=== PATIENT | male | born 1990 | race Caucasian/White ===

== ENCOUNTER 2018-06-13 09:24 | Outpatient (CLI) | payer BC, SELFPAY ==
--- NOTE | 2018-06-13 09:31 | DI.REPORT_ITS ---
SYMPTOM/DIAGNOSIS: LOW BACK PAIN, M54.9 LUMBAR SPINE: AP lateral and bilateral oblique views. There are no priors for comparison. There are five lumbar type vertebral bodies. There is straightening of the normal lumbar lordosis. No spondylolysis is present. There is very mild retrolisthesis of L5 on S1. There is a vacuum disc and disc space narrowing at L5-S1. The bones are normally mineralized. No acute fracture or subluxation is seen. The soft tissues are unremarkable. Incidental note is made of a bifid spinous process at S-1. IMPRESSION: Mild degenerative changes seen at L5-S1. If there is continued clinical concern and further imaging is warranted, an MRI may be considered.
== END 2018-06-13 09:25 ==
PROVIDERS: PCP Nurse Practitioner; Visit Provider Nurse Practitioner
DX: M54.5 Low back pain (principal); M51.37 Other intervertebral disc degeneration, lumbosacral region
CPT/HCPCS: 72110

== ENCOUNTER 2019-02-09 00:28 | Outpatient (CLI) | payer BC, SELFPAY ==
--- NOTE | 2019-02-09 08:50 | DI.MRI_ITS ---
SYMPTOM/DIAGNOSIS: SPONDYLOSIS WITH MYELOPATHY LS SPINE, BILAT LEG PAIN, CHRONIC LOW BACK PAIN LUMBAR SPINE MRI: The study was conducted according to the usual protocol. Sagittal T 1 and T 2 and sagittal T 1 STIR and axial T 1, axial T 2 and axial T 2 MSMA pulse sequences were performed. The bony signal is intact. At L 1-2, there is no disc herniation. The facet joints are intact. There is no evidence of spinal stenosis. At L 2-3, the disc appears normal. There is no herniation. The facet joints are intact. At L 3-4, the disc also is normal. There is no protrusion. There are mild degenerative changes involving the facet joints. There is no evidence of spinal stenosis. At L 4-5, diminished disc signal is demonstrated and there is an apparent subligamentous disc herniation with anular tear. There are mild facet joint degenerative changes and there is mild to moderate bilateral foraminal stenosis. At L 5-S 1, diminished disc signal is noted. A disc herniation is identified and there is a 10 mm. retrolisthesis of L 5 on S 1. Facet joint degenerative changes are of mild to moderate degree. There is evident severe bilateral foraminal stenosis. There is no intrinsic abnormality involving the lower dorsal cord, conus or filum terminale. SUMMARY: Findings consistent with degenerative disc disease and DJD at L 4-5 and L 5-S 1 where there are small disc protrusions. Note is made of a 10 mm. retrolisthesis of L 5 on S 1 with resultant severe bilateral foraminal stenosis. Please see the above discussion.
== END 2019-02-09 00:48 ==
PROVIDERS: PCP Nurse Practitioner; Visit Provider Anesthesiology Pain Medicine
DX: M47.16 Other spondylosis with myelopathy, lumbar region (principal); M51.37 Other intervertebral disc degeneration, lumbosacral region; M54.5 Low back pain; G89.29 Other chronic pain; M79.604 Pain in right leg; M79.605 Pain in left leg
CPT/HCPCS: 72148

== ENCOUNTER 2023-12-22 04:13 | Outpatient (CLI) | payer BC, SELFPAY ==
[2023-12-22 16:42] LABS: Abs Immature Grans 0.02 10^3/uL (0.0-0.06); Absolute Basophil Count 0.02 10^3/uL (0.0-0.2); Absolute Eosinophil Count 0.03 10^3/uL (0.0-0.7); Absolute Lymphocyte Count 2.65 10^3/uL (1.2-3.4); Absolute Monocyte Count 0.66 10^3/uL (0.1-0.8); Absolute Neutrophil Count 5.73 10^3/uL (1.2-6.7); Basophils % 0.2; Eosinophils % 0.3; HCT 45.1 % (40.0-50.0); HGB 15.4 g/dL (13.5-17.5); Immature Grans % 0.2; Lymphocytes % 29.1; MCH 29.6 pg (27.0-33.0); MCHC 34.1 % (32.0-36.0); MCV 87 fL (80-95); MPV 9.1 fL (8.0-11.0); Monocytes % 7.2; Platelet Count 323 10^3/uL (130-400); RDW 12.1 % (11.8-14.1); RDW-SD 38.6 fL; WBC 9.11 10^3/uL (4.4-10.8)
[2023-12-22 16:53] LABS: Bilirubin Negative (Negative); Blood Negative (Negative); Clarity Clear (Clear); Glucose Negative (Negative); Ketones Negative (Negative); Leukocyte Esterase Negative (Negative); Nitrite Negative (Negative); Specific Gravity >= 1.030 (1.005-1.025); Urobilinogen 0.2 mg/dL (Up to 0.2)
[2023-12-22 17:12] LABS: ALT 34 U/L (16-63); AST 21 U/L (15-37); Albumin 4.1 g/dL (3.4-5.0); Alkaline Phosphatase 129 U/L (46-116); Anion Gap 9.2 mmol/L (3-11); BUN 15 mg/dL (7-18); Bilirubin, Total 0.3 mg/dL (0.2-1.0); CO2 29.8 mmol/L (21.0-32.0); CREATININE 1.1 mg/dL (0.70-1.30); Calcium 9.4 mg/dL (8.5-10.1); Chloride 101 mmol/L (98-107); Glucose 108 mg/dL (74-106); Potassium 4.1 mmol/L (3.5-5.1); Sodium 140 mmol/L (136-145); Total Protein 8.4 g/dL (6.4-8.2)
== END 2023-12-22 04:14 | disposition home or self-care (01) ==
LOC: LBO 04:14
PROVIDERS: Absent Provider Nurse Practitioner; PCP Nurse Practitioner; Referring Provider Emergency Medicine; Visit Provider Emergency Medicine
DX: R10.9 Unspecified abdominal pain (principal); R30.0 Dysuria
CPT/HCPCS: 36415; 80053; 81003; 85025

== ENCOUNTER 2023-12-29 01:33 | Outpatient (CLI) | payer BC, SELFPAY ==
[2023-12-29 17:41] LABS: ALT 29 U/L (16-63); AST 20 U/L (15-37); Albumin 3.9 g/dL (3.4-5.0); Alkaline Phosphatase 129 U/L (46-116); Bilirubin, Direct 0.1 mg/dL (0.0-0.2); Bilirubin, Total 0.4 mg/dL (0.2-1.0); GGT 29 U/L (15-85); Total Protein 8.1 g/dL (6.4-8.2)
== END 2023-12-29 01:34 | disposition home or self-care (01) ==
LOC: LBO 01:33
PROVIDERS: Absent Provider Emergency Medicine; PCP Nurse Practitioner; Visit Provider Emergency Medicine
DX: R10.9 Unspecified abdominal pain (principal); R74.8 Abnormal levels of other serum enzymes
CPT/HCPCS: 36415; 80076; 82977